=== PATIENT | female | born 1975 | race Caucasian/White ===

== ENCOUNTER 2023-03-17 14:35 | Outpatient (CLI) | payer BC, SELFPAY ==
--- NOTE | 2023-03-17 14:30 | MM_ITS ---
WS: [id number] BILATERAL 3D TOMOSYNTHESIS DIGITAL SCREENING MAMMOGRAPHY WITH CAD CLINICAL INFORMATION: SCREENING HISTORY: Screening mammogram. No current complaints. COMPARISON: 2017 TECHNIQUE: Bilateral CC and MLO views. FINDINGS: The breasts are composed of heterogeneous fibroglandular density tissue, which can limit the detectio n of small underlying mass lesions. New ovoid nodule outer LEFT breast measuring 11 mm. Recommend LEF T breast diagnostic mammography and ultrasound if persistent. RIGHT breast is unremarkable. IMPRESSION: MM/[place] [id number] BI-RADS: 0-Incomplete: Need additional imaging evaluation FOLLOW UP: Need Additional Imaging Recommend LEFT breast diagnostic mammography and ultrasound if persistent.
== END 2023-03-17 14:36 | disposition home or self-care (01) ==
LOC: MOBLMAM 14:39
PROVIDERS: Visit Provider Nurse Practitioner
DX: Z12.31 Encounter for screening mammogram for malignant neoplasm of breast (principal)
CPT/HCPCS: 77063; 77067